=== PATIENT | female | born 1990 | race Caucasian/White ===

== ENCOUNTER 2025-05-16 07:28 | Inpatient (IN) ==
[2025-05-16] MEDS ORDERED: LIDOCAINE 1% LOCAL 20 ML VIAL INFIL PRN (12:42)
[2025-05-16] MEDS ORDERED: OXYTOCIN 30 UNITS/NSS 30 UNITS/500 ML BAG IV PRN (12:42)
[2025-05-16] MEDS ORDERED: CALCIUM CARBONATE 500 MG CHEWABLE TAB PO PRN (12:42)
--- NOTE | 2025-05-16 13:22 | History & Physical Report ---
Date of Service May 16, 2025 Assessment & Plan (1) Encounter for induction of labor: (2) Diabetes mellitus during , antepartum: (3) Two vessel umbilical cord: (4) Hypothyroid in , antepartum: Plan Rochelle Bassett is a 35 y/o at 39w 1d presenting for induction of labor. is complicated by history of T2DM managed with insulin and subclinical hypothyroidism. Pitocin started Encinas bulb placed Epidural if requested q2h BG checks (POC glucose 104 on admission) Continue monitoring Vitals and I&O monitoring Anticipate Admission and Anticipated Discharge Date Admission Date: May 16, 2025 History of Present Illness Chief Complaint: induction of labor Primary Care Provider: LAURA Parker Rochelle Bassett is a 35 y/o 39w 1d presenting today for induction of labor. is complicated by history of T2DM and subclinical hypothyroidism. EMILY 05/21/25 confirmed by ultrasound. External FHT and external uterine monitors used; Category I tracing; moderate FHT variability. Had regular appointments with OB. Rh(+), Rubella immune, GBS (-) (04/27/25) POC glucose on admission - 104 OB Labs: Blood Type O Positive 11/17/24 Antibody Screen NEGATIVE 11/17/24 Hgb 13.7 g/dl (12.0-16.0) 03/06/25 Hct 40.9 % (37.0-47.0) 03/06/25 MCV 88.6 fL (80.0-100.0) 11/17/24 Plt Count 237 K/uL (130-400) 11/17/24 Rubella IgG Antibody Immune (Immune) 11/17/24 Treponema pallidum Ab Negative (Negative) 03/06/25 Hep Bs Antigen Negative (Negative) 11/17/24 Hepatitis C Antibody Negative (Negative) 11/17/24 HIV 1&2 Ab/P24 Ag 4thGn Negative (Negative) 11/17/24 OB Optional Labs: Chlamydia trachomatis RNA Not Detected (NotDetected) 11/17/24 Neisseria gonorrhoeae RNA Not Detected (NotDetected) 11/17/24 Thyroid Stimulating Hormone (TSH) 2.739 uIu/ml (0.300-4.500) 03/24/25 cff-DNA: low-risk (see scanned documents) Review of Systems Denies fever, chills, sweats Denies shortness of breath, difficulty breathing, chest pain, palpitations, chest pressure. Denies breast pain. Denies dysuria. Denies headache or changes in vision. Allergies Allergy/AdvReac Type Severity Reaction Status Date / Time Sulfa (Sulfonamide Allergy Severe Anaphylaxis Verified 05/15/25 13:54 Antibiotics) Home Medications Medication Instructions Recorded Confirmed Type blood-glucose meter (OneTouch #1 ea 04/21/24 05/15/25 Rx Verio Flex Meter) lancets 30 gauge (OneTouch Delica #200 ea 04/21/24 05/15/25 Rx Plus Lancet) blood sugar diagnostic (OneTouch #360 ea 06/02/24 05/15/25 Rx Verio test strips) comp.stocking,knee,long,medium #12 ea 10/12/24 05/15/25 Rx blood-glucose,ground layer,cont #1 ea 10/13/24 05/15/25 Rx (Dexcom G7 Radioactivity Technician) vitamin #56-iron 35 mg 1 cap PO DAILY 11/08/24 05/16/25 History and 5 mg-folic acid 1 mg-dha capsule pen needle, diabetic 32 gauge x #100 ea 11/14/24 05/15/25 Rx 5/32" (BD Emy 2nd Gen Pen Needle) aspirin 81 mg capsule 81 mg PO DAILY 02/07/25 05/16/25 History blood-glucose sensor (Dexcom G7 #3 ea 03/21/25 05/15/25 Rx Sensor device) insulin lispro 100 unit/mL See Rx Instructions subcut TID #15 03/23/25 05/16/25 Rx subcutaneous pen (Humalog KwikPen mL (U-100) Insulin) levothyroxine 100 mcg tablet 100 mcg PO .COMPLEX #38 tabs 03/28/25 05/16/25 Rx breast pump #1 ea 05/04/25 05/15/25 Rx insulin glargine 100 unit/mL (3 34 unit subcut DAILY 05/16/25 05/16/25 History mL) subcutaneous pen (Basaglar KwikPen U-100 Insulin) Patient History Medical History (Updated 05/16/25 @ 13:27 by Cynthia Olguin DO) Full dentures History of chicken pox Pain due to varicose veins of lower extremity Varicosities of leg Hemoglobin A1c 8.0 percent or greater Hemoglobin A1c above reference range Gestational diabetes Surgical History S/P tooth extraction S/P wisdom tooth extraction Family History Grandmother (Maternal) Diabetes Mother Hypertension Other Colorectal cancer Denies family history of Ovarian cancer Prostate cancer Breast cancer Lung cancer Social History (Updated 03/27/25 @ 11:41 by Melanie Hutton RN) Smoking Status: Never smoker Tobacco Type: Cigarettes Age Started Using Tobacco: 0; packs per day: 0; Cigarettes Per Day: 3; Second Hand Exposure: No; Do You Dip or Chew Tobacco: No; Hx Alcohol Use: No Hx Substance Use: No Preferred Language: Estonian Communication Ability: Effective Visual Impairment: No Limitations Traffic Control Officer Required: No Beliefs That Will Affect Care: None marital status: marital status details: Paul Bassett ([phone] Current Living Situation: Spouse and Family Current Living Situation Comment: lives with spouse, daughter, dogs current occupational status: unemployed How many Children do You have: 1 Other Information That Helps Us Care for You: No Feels Safe at Home: Yes Safety Concerns: Feels Safe At This Time Childhood Exposure to Second-Hand Smoke: Yes caffeine: Yes Dental Care, Regularly: Yes Physical Activity Frequency: 1-2 Times per Week Seatbelt Use: always Sunscreen Use: Yes Review of Systems All systems reviewed & are unremarkable except as noted in HPI & below Physical Exam Physical Exam: General: Alert, oriented. No acute distress. Cardiac: Regular rate and rhythm, no murmurs/rubs/gallops. Respiratory: Clear to auscultation bilaterally a/p, no wheezes/rales/rhonchi. No increased work of breathing. Symmetrical chest rise. No respiratory distress. Abdomen: Gravid, soft, nontender. normal to inspection. Pelvic: Dilation 1 cm; Effacement 50 ; Station -[address] Laurent Lower Extremities: No lower extremity edema or swelling. No deep calf pain. H adriano's negative bilaterally Constitutional: WD/WN, vitals as above Results & Data Vital Signs (Past 12 Hours) Vital Signs Temp Pulse Resp BP 05/16/25 12:23 74 135/87 05/16/25 12:13 36.9 C 20 Supervising Physician Co-Signing Physician Notes Resident Physician Supervision Note: I was present with Dr. Olguin during the history and exam. I discussed the case with the resident and agree with the findings and plan as documented in the note. Any exceptions or clarifications are listed here: 35yo at 39+wks for planned induction with pregest dm, 2vc and hypothyroidism. cx unfavorable and planned encinas and pitocin induction. was unable to come in for encinas overnight and induction this am, delayed until now due to bed availability. pt did therefore have breakfast and lunch and gave herself partial doses of her meal time insulin. denies rom, vb. +Fm. Rh pos, ri, gbs neg, prior x 1 10 yrs ago, same fob. PE. abd soft gravid nt, efw 8-9#. ext nt calves. fhts categ 1. toco no regular ctx. sve visually 1cm, long, -2, mid med. PROCEDURE: sse cx visualized, grasped on ant lip with ring forcep, encinas through os and balloon inflated with 40cc sterile water. Spec removed, encinas taped to leg. pt anamaria well. Will proceed with starting pitocin as well. Epidural when pt desires, arom when able. Will check bgs q2hr for now and q1hr in active labor. May require insulin drip if bsgs out of range, try to keep bsg 80-120. Pt has cgm as well. Couple verbalized understanding and agree. Documented By: Nia Laurent MD, FACOG
[2025-05-16] MEDS: LACTATED RINGER'S 1,000 ML IV PRN (13:33)
[2025-05-16] MEDS: OXYTOCIN 30 UNITS/NSS 30 UNITS/500 ML BAG IV PRN (13:33)
[2025-05-16 13:53] LABS: Hematocrit (blood only) 37.1 % (37.0-47.0); Hemoglobin 13.1 g/dl (12.0-16.0); Mean Corpuscular Hemoglobin 31.0 pg (25.0-34.0); Mean Corpuscular Volume 87.7 fL (80.0-100.0); Platelet Count 192 K/uL (130-400); RDW Standard Deviation 43.8 fL (36.4-46.3); Red Blood Count 4.23 M/uL (4.20-5.40); White Blood Count 7.31 K/ul (4.8-10.8)
--- NOTE | 2025-05-16 15:15 | Labor Progress Brief Note ---
Date of Service May 16, 2025 Subjective pt came for induction and this note bills for cervical dilator. prior note documents procedure. Assessment & Plan (1) Encounter for induction of labor: (2) Two vessel umbilical cord: (3) Hypothyroid in , antepartum: (4) Diabetes mellitus during , antepartum: (5) Non-dilated cervix in term : Plan encinas ripening balloon placed. see prior note for procedure. Admission and Anticipated Discharge Date Admission Date: May 16, 2025 Results & Data Vital Signs (Past 12 Hours) Vital Signs Temp Pulse Resp BP 05/16/25 14:22 69 122/72 05/16/25 13:37 71 122/77 05/16/25 12:23 74 135/87 05/16/25 12:13 98.4 F 20 Coding Level of Care Code None Diagnoses Encounter for induction of labor Z34.90 Two vessel umbilical cord Q27.0 Hypothyroid in , antepartum O99.280; E03.9 Diabetes mellitus during , antepartum O24.919 Non-dilated cervix in term O34.40 CPT Codes Misx Procedure Codes - 49806 Placement of cervical dilator: 79363 Placement of cervical dilator ([id number]) SCALLOP SHUCKER Miscellaneous Codes Misx Procedure Codes 87510 Placement of cervical dilator
--- NOTE | 2025-05-16 15:18 | Anesthesiology Consultation ---
Date of Service May 16, 2025 Assessment & Plan (1) Encounter for pre-operative examination: Chart Review Chart Review: Acceptable Risk for Labor Epidural History Height/Weight Height: 5 ft 5 in Weight: 96.615 kg Allergies Allergy/AdvReac Type Severity Reaction Status Date / Time Sulfa (Sulfonamide Allergy Severe Anaphylaxis Verified 05/15/25 13:54 Antibiotics) Medications Home Medications Medication Instructions Recorded Confirmed Last Taken blood-glucose meter (OneTouch #1 ea 04/21/24 05/15/25 Unknown Verio Flex Meter) lancets 30 gauge (OneTouch Delica #200 ea 04/21/24 05/15/25 Unknown Plus Lancet) blood sugar diagnostic (OneTouch #360 ea 06/02/24 05/15/25 Unknown Verio test strips) comp.stocking,knee,long,medium #12 ea 10/12/24 05/15/25 Unknown blood-glucose,field sales specialist,cont #1 ea 10/13/24 05/15/25 Unknown (Dexcom G7 Upholsterer Assembly Line) vitamin #56-iron 35 mg 1 cap PO DAILY 11/08/24 05/16/25 05/16/25 06:00 and 5 mg-folic acid 1 mg-dha capsule pen needle, diabetic 32 gauge x #100 ea 11/14/24 05/15/25 Unknown 5/32" (BD Emy 2nd Gen Pen Needle) aspirin 81 mg capsule 81 mg PO DAILY 02/07/25 05/16/25 05/16/25 06:00 blood-glucose sensor (Dexcom G7 #3 ea 03/21/25 05/15/25 Unknown Sensor device) insulin lispro 100 unit/mL See Rx Instructions subcut TID #15 03/23/25 05/16/25 05/16/25 11:00 subcutaneous pen (Humalog KwikPen mL (U-100) Insulin) levothyroxine 100 mcg tablet 100 mcg PO .COMPLEX #38 tabs 03/28/25 05/16/25 05/16/25 06:00 breast pump #1 ea 05/04/25 05/15/25 Unknown insulin glargine 100 unit/mL (3 34 unit subcut DAILY 05/16/25 05/16/25 05/15/25 22:00 mL) subcutaneous pen (Basaglar KwikPen U-100 Insulin) Active Medications Generic Name Dose Route Start Last Admin Trade Name Freq PRN Reason Stop Dose Admin Oxytocin 30 units in 500 mls @ 5 mls/hr 05/16/25 12:42 05/16/25 15:00 Pitocin 30 Units/Nss IV 05/18/25 12:41 0.3 units/hr .Q24H PRN 5 mls/hr Labor Induction/Augmentation Titration Protocol 0.3 UNITS/HR Lactated Ringer's 1,000 mls @ 125 mls/hr 05/16/25 12:42 05/16/25 14:55 Lr IV 05/18/25 12:41 999 mls/hr .Q8H PRN Infusion L&D Protocol Protocol Past Medical History Medical History Full dentures History of chicken pox Pain due to varicose veins of lower extremity Varicosities of leg Hemoglobin A1c 8.0 percent or greater Hemoglobin A1c above reference range Gestational diabetes Past Family History Family History Grandmother (Maternal) Diabetes Mother Hypertension Other Colorectal cancer Denies family history of Ovarian cancer Prostate cancer Breast cancer Lung cancer Past Surgical History Surgical History S/P tooth extraction S/P wisdom tooth extraction Social History Smoking Status: Never smoker Smoking cigarettes per day: 3 Do You Dip or Chew Tobacco: No Hx Alcohol Use: No Hx Substance Use: No Physical Exam Vital Signs Last Vital Signs Temp 36.9 C 05/16/25 12:13 Pulse 69 05/16/25 14:22 Resp 20 05/16/25 12:13 BP 122/72 05/16/25 14:22 Testing Laboratory Results 05/16/25 13:10 05/16/25 13:15 POC Glucose 104 H
[2025-05-16] MEDS: fentANYL 2 MCG/ML BUPIVacaine 0.125%-NSS 100ML BAG ONE (15:47)
[2025-05-16] MEDS: LIDOCAINE 2%/EPINEPHRINE 1:200,000 20 ML PF ONE (15:48)
[2025-05-16] MEDS: BUPIVACAINE 0.25% PF 30 ML VIAL ONE (15:48)
[2025-05-16] MEDS ORDERED: ONDANSETRON INJ 2 MG/ML 2 ML VIAL IV PRN (15:52)
[2025-05-16] MEDS ORDERED: ROPIVACAINE 0.5% PF 5 MG/ML 20 ML VIAL EPI PRN (15:52)
[2025-05-16] MEDS ORDERED: LIDOCAINE 2% MPF LOCAL 5 ML VIAL EPI PRN (15:52)
[2025-05-16] MEDS ORDERED: SODIUM CHLORIDE 0.9% PF INJ 10 ML VIAL EPI PRN (15:52)
[2025-05-16] MEDS ORDERED: NALOXONE HCL 0.4 MG/1 ML VIAL/CARP IV PRN (15:52)
[2025-05-16] MEDS ORDERED: NALOXONE HCL 1 MG in SODIUM CHLORIDE 0.9% 1,000 ML IV PRN (15:52)
[2025-05-16] MEDS ORDERED: BUPIVACAINE 0.25% PF 30 ML VIAL EPI PRN (15:52)
--- NOTE | 2025-05-16 16:34 | Labor Progress Brief Note ---
Date of Service May 16, 2025 Subjective pt comfortable. Assessment & Plan (1) Encounter for induction of labor: (2) Two vessel umbilical cord: (3) Hypothyroid in , antepartum: (4) Diabetes mellitus during , antepartum: Plan will see how arom helps labor and c/w pit. fhts categ 1. Admission and Anticipated Discharge Date Admission Date: May 16, 2025 Physical Exam Constitutional: WD/WN, vitals as above Genitourinary: Manual OB Exam: + cervical dilation 5 cm, + cervical effacement (long), + station high and + amniotic fluid (clear fluid, seems to be srom.) OB Exam Monitor Tracing: + external FHT monitor used, + external uterine monitor used (not well traced ), + category I and + normal FHT variability Results & Data Vital Signs (Past 12 Hours) Vital Signs Temp Pulse Resp BP Pulse Ox 05/16/25 16:30 87 89 L 05/16/25 16:26 97 05/16/25 16:26 88 05/16/25 16:26 86 127/69 05/16/25 16:21 95 H 96 05/16/25 16:20 71 142/71 H 05/16/25 16:16 81 130/78 94 05/16/25 16:15 86 127/78 05/16/25 16:11 70 96 05/16/25 16:10 84 133/80 05/16/25 16:06 80 95 05/16/25 16:05 79 139/80 05/16/25 16:01 95 05/16/25 16:01 86 05/16/25 16:01 89 94 05/16/25 16:00 70 18 157/79 H 05/16/25 15:56 96 05/16/25 15:56 85 05/16/25 15:56 94 H 94 05/16/25 15:55 95 H 20 142/83 H 05/16/25 15:53 71 152/79 H 05/16/25 15:51 81 146/84 H 97 05/16/25 15:50 20 05/16/25 15:50 20 05/16/25 15:50 90 05/16/25 15:50 78 05/16/25 15:50 81 152/87 H 05/16/25 15:48 76 149/85 H 05/16/25 15:46 70 159/93 H 97 05/16/25 15:45 20 05/16/25 15:45 20 05/16/25 15:44 82 155/91 H 05/16/25 15:43 83 90 05/16/25 15:41 95 H 98 05/16/25 15:36 88 97 05/16/25 15:31 85 100 05/16/25 15:30 73 150/76 H 05/16/25 15:28 70 93 05/16/25 15:26 72 96 05/16/25 14:22 69 122/72 05/16/25 13:37 71 122/77 05/16/25 12:23 74 135/87 05/16/25 12:13 98.4 F 20 Coding Level of Care Code None Diagnoses Encounter for induction of labor Z34.90 Two vessel umbilical cord Q27.0 Hypothyroid in , antepartum O99.280; E03.9 Diabetes mellitus during , antepartum O24.919
[2025-05-16] MEDS: SODIUM CHLORIDE 0.9% PF INJ 10 ML VIAL ONE (17:48)
[2025-05-16] MEDS: BUPIVACAINE 0.25% PF 30 ML VIAL EPI STA (17:57)
[2025-05-16] MEDS: SODIUM CHLORIDE 0.9% PF INJ 10 ML VIAL EPI STA (17:57)
[2025-05-16] MEDS: LIDOCAINE 2%/EPINEPHRINE 1:200,000 20 ML PF EPI STA (17:57)
--- NOTE | 2025-05-16 18:56 | Labor Progress Brief Note ---
Date of Service May 16, 2025 Subjective pt comfortable, bladder just drained for 300cc. Assessment & Plan (1) Encounter for induction of labor: (2) Two vessel umbilical cord: (3) Hypothyroid in , antepartum: (4) Diabetes mellitus during , antepartum: Plan small cx change. c/w pit. fhts categ 1. Admission and Anticipated Discharge Date Admission Date: May 16, 2025 Physical Exam Constitutional: WD/WN, vitals as above Genitourinary: Manual OB Exam: + cervical dilation 6 cm, + cervical effacement 50% and + station (mid position now, was posterior ) -2 OB Exam Monitor Tracing: + external FHT monitor used, + external uterine monitor used (q2-4), + category I and + normal FHT variability Results & Data Vital Signs (Past 12 Hours) Vital Signs Temp Pulse Resp BP Pulse Ox 05/16/25 18:51 71 95 05/16/25 18:50 75 94 05/16/25 18:48 81 116/72 05/16/25 18:46 70 95 05/16/25 18:44 72 94 05/16/25 18:41 74 96 05/16/25 18:38 82 94 05/16/25 18:36 84 95 05/16/25 18:32 68 05/16/25 18:32 70 116/62 94 05/16/25 18:31 78 95 05/16/25 18:30 18 05/16/25 18:30 18 05/16/25 18:27 72 94 05/16/25 18:26 77 95 05/16/25 18:22 88 93 05/16/25 18:21 87 93 05/16/25 18:18 81 120/68 05/16/25 18:16 86 95 05/16/25 18:11 73 96 05/16/25 18:08 71 93 05/16/25 18:06 81 96 05/16/25 18:02 81 110/61 05/16/25 18:01 74 95 05/16/25 18:00 18 05/16/25 18:00 73 18 94 05/16/25 17:56 83 95 05/16/25 17:55 82 93 05/16/25 17:51 81 96 05/16/25 17:49 83 113/61 93 05/16/25 17:46 86 95 05/16/25 17:44 72 94 05/16/25 17:41 73 96 05/16/25 17:38 78 93 05/16/25 17:36 83 96 05/16/25 17:34 80 121/68 05/16/25 17:32 74 93 05/16/25 17:31 74 96 05/16/25 17:26 72 97 05/16/25 17:21 70 97 05/16/25 17:16 82 96 05/16/25 17:15 74 94 05/16/25 17:11 81 98 05/16/25 17:06 67 96 05/16/25 17:03 70 129/77 05/16/25 17:01 77 98 05/16/25 17:00 18 05/16/25 17:00 18 05/16/25 16:56 86 97 05/16/25 16:51 89 97 05/16/25 16:46 84 96 05/16/25 16:45 73 135/71 05/16/25 16:43 81 94 05/16/25 16:41 81 96 05/16/25 16:40 75 132/58 L 05/16/25 16:36 80 97 05/16/25 16:35 98.1 F 73 145/68 H 05/16/25 16:31 73 99 05/16/25 16:30 87 18 89 L 05/16/25 16:26 97 05/16/25 16:26 88 05/16/25 16:26 86 127/69 05/16/25 16:21 95 H 96 05/16/25 16:20 71 142/71 H 05/16/25 16:16 81 130/78 94 05/16/25 16:15 86 127/78 05/16/25 16:11 70 96 05/16/25 16:10 84 133/80 05/16/25 16:06 80 95 05/16/25 16:05 79 139/80 05/16/25 16:01 95 05/16/25 16:01 86 05/16/25 16:01 89 94 05/16/25 16:00 70 18 157/79 H 05/16/25 15:56 96 05/16/25 15:56 85 05/16/25 15:56 94 H 94 05/16/25 15:55 95 H 20 142/83 H 05/16/25 15:53 71 152/79 H 05/16/25 15:51 81 146/84 H 97 05/16/25 15:50 20 05/16/25 15:50 20 05/16/25 15:50 90 05/16/25 15:50 78 05/16/25 15:50 81 152/87 H 05/16/25 15:48 76 149/85 H 05/16/25 15:46 70 159/93 H 97 05/16/25 15:45 20 05/16/25 15:45 20 05/16/25 15:44 82 155/91 H 05/16/25 15:43 83 90 05/16/25 15:41 95 H 98 05/16/25 15:36 88 97 05/16/25 15:31 85 100 05/16/25 15:30 73 150/76 H 05/16/25 15:28 70 93 05/16/25 15:26 72 96 05/16/25 14:22 69 122/72 05/16/25 13:37 71 122/77 05/16/25 12:23 74 135/87 05/16/25 12:13 98.4 F 20 Coding Level of Care Code None Diagnoses Encounter for induction of labor Z34.90 Two vessel umbilical cord Q27.0 Hypothyroid in , antepartum O99.280; E03.9 Diabetes mellitus during , antepartum O24.919
[2025-05-16] MEDS: ACETAMINOPHEN 325 MG TAB PO STA (19:28)
--- NOTE | 2025-05-16 20:33 | Labor Progress Brief Note ---
Date of Service May 16, 2025 Subjective comfortable. Assessment & Plan (1) Encounter for induction of labor: (2) Two vessel umbilical cord: (3) Hypothyroid in , antepartum: (4) Diabetes mellitus during , antepartum: Plan iupc placed and mvu's inadeq, cont to inc pit to achieve adeq mvu's. fhts categ 1. bsgs noted. Admission and Anticipated Discharge Date Admission Date: May 16, 2025 Physical Exam Constitutional: WD/WN, vitals as above Genitourinary: Manual OB Exam: + cervical dilation 6 cm, + cervical effacement (75% with ctx) and + station -2 OB Exam Monitor Tracing: + external FHT monitor used, + external uterine monitor used (q3 pit at 13), + intra-uterine pressure catheter used (placed, mvu inadeq), + category I and + normal FHT variability Results & Data Vital Signs (Past 12 Hours) Vital Signs Temp Pulse Resp BP Pulse Ox 05/16/25 20:26 70 97 05/16/25 20:21 74 95 05/16/25 20:18 75 126/69 05/16/25 20:16 74 96 05/16/25 20:11 81 95 05/16/25 20:06 74 95 05/16/25 20:04 75 127/76 05/16/25 20:01 82 96 05/16/25 19:56 84 96 05/16/25 19:51 86 95 05/16/25 19:48 81 115/69 05/16/25 19:46 76 95 05/16/25 19:41 85 95 05/16/25 19:36 79 96 05/16/25 19:34 75 122/72 05/16/25 19:31 75 94 05/16/25 19:26 92 H 95 05/16/25 19:21 72 95 05/16/25 19:18 78 121/72 05/16/25 19:16 77 96 05/16/25 19:13 75 93 05/16/25 19:11 76 94 05/16/25 19:07 71 93 05/16/25 19:06 71 96 05/16/25 19:03 70 110/68 05/16/25 19:02 71 94 05/16/25 19:01 72 94 05/16/25 18:56 83 94 05/16/25 18:51 71 95 05/16/25 18:50 75 94 05/16/25 18:48 81 116/72 05/16/25 18:46 70 95 05/16/25 18:44 72 94 05/16/25 18:41 74 96 05/16/25 18:38 82 94 05/16/25 18:36 84 95 05/16/25 18:32 68 05/16/25 18:32 70 116/62 94 05/16/25 18:31 78 95 05/16/25 18:30 18 05/16/25 18:30 18 05/16/25 18:27 72 94 05/16/25 18:26 77 95 05/16/25 18:22 88 93 05/16/25 18:21 87 93 05/16/25 18:18 81 120/68 05/16/25 18:16 86 95 05/16/25 18:11 73 96 05/16/25 18:08 71 93 05/16/25 18:06 81 96 05/16/25 18:02 81 110/61 05/16/25 18:01 74 95 05/16/25 18:00 18 05/16/25 18:00 73 18 94 05/16/25 17:58 98.4 F 05/16/25 17:56 83 95 05/16/25 17:55 82 93 05/16/25 17:51 81 96 05/16/25 17:49 83 113/61 93 05/16/25 17:46 86 95 05/16/25 17:44 72 94 05/16/25 17:41 73 96 05/16/25 17:38 78 93 05/16/25 17:36 83 96 05/16/25 17:34 80 121/68 05/16/25 17:32 74 93 05/16/25 17:31 74 96 05/16/25 17:26 72 97 05/16/25 17:21 70 97 05/16/25 17:16 82 96 05/16/25 17:15 74 94 05/16/25 17:11 81 98 05/16/25 17:06 67 96 05/16/25 17:03 70 129/77 05/16/25 17:01 77 98 05/16/25 17:00 18 05/16/25 17:00 18 05/16/25 16:56 86 97 05/16/25 16:51 89 97 05/16/25 16:46 84 96 05/16/25 16:45 73 135/71 05/16/25 16:43 81 94 05/16/25 16:41 81 96 05/16/25 16:40 75 132/58 L 05/16/25 16:36 80 97 05/16/25 16:35 98.1 F 73 145/68 H 05/16/25 16:31 73 99 05/16/25 16:30 87 18 89 L 05/16/25 16:26 97 05/16/25 16:26 88 05/16/25 16:26 86 127/69 05/16/25 16:21 95 H 96 05/16/25 16:20 71 142/71 H 05/16/25 16:16 81 130/78 94 05/16/25 16:15 86 127/78 05/16/25 16:11 70 96 05/16/25 16:10 84 133/80 05/16/25 16:06 80 95 05/16/25 16:05 79 139/80 05/16/25 16:01 95 05/16/25 16:01 86 05/16/25 16:01 89 94 05/16/25 16:00 70 18 157/79 H 05/16/25 15:56 96 05/16/25 15:56 85 05/16/25 15:56 94 H 94 05/16/25 15:55 95 H 20 142/83 H 05/16/25 15:53 71 152/79 H 05/16/25 15:51 81 146/84 H 97 05/16/25 15:50 20 05/16/25 15:50 20 05/16/25 15:50 90 05/16/25 15:50 78 05/16/25 15:50 81 152/87 H 05/16/25 15:48 76 149/85 H 05/16/25 15:46 70 159/93 H 97 05/16/25 15:45 20 05/16/25 15:45 20 05/16/25 15:44 82 155/91 H 05/16/25 15:43 83 90 05/16/25 15:41 95 H 98 05/16/25 15:36 88 97 05/16/25 15:31 85 100 05/16/25 15:30 73 150/76 H 05/16/25 15:28 70 93 05/16/25 15:26 72 96 05/16/25 14:22 69 122/72 05/16/25 13:37 71 122/77 05/16/25 12:23 74 135/87 05/16/25 12:13 98.4 F 20 Coding Level of Care Code None Diagnoses Encounter for induction of labor Z34.90 Two vessel umbilical cord Q27.0 Hypothyroid in , antepartum O99.280; E03.9 Diabetes mellitus during , antepartum O24.919
[2025-05-16] MEDS: fentANYL 2 MCG/ML BUPIVacaine 0.125%-NSS 100ML BAG EPI PRN (22:51)
[2025-05-17] MEDS: METHYLERGONOVINE MALEATE 0.2 MG/ML AMP IM ONE (01:12)
--- NOTE | 2025-05-17 01:37 | Delivery Summary ---
Vaginal Delivery Summary Date of Service May 17, 2025 Vaginal Delivery Summary and 2nd Degree LAC The patient dilated to complete and pushed to deliver a viable female infant Apgars 9 and 9 via over 2nd degree perineal laceration. Mouth and nose bulb suctioned at perineum. Shoulders and body delivered with ease. Infant was vigorous and crying at . Cord clamped at 60 seconds of life and infant to maternal abdomen where the cord was then doubly clamped and cut. Laceration repaired in usual fashion with 3-0 vicryl. Placenta delivered spontaneously and cotyledons intact. Hemostasis not achieved with dilute pitocin and uterine massage/bimanual massage and drainage of the bladder for approximately 200 cc under sterile conditions. Rectal cytotec 1000mcg placed but rapidly expelled from rectum and after bp checked IM methergine given. Uterus swept x multiple and membranes removed multiple times, some larger pieces but then some smaller pieces with ? tissue. Area palpated with this was anterior and LEONELA. After recheck of uterus again with times of good uterine tone and then poor uterine tone, with no further evidence of retained products, GUI placed and attached to wall suction. Laceration had to be reapproximated with interrupted suture of 3-0 vicyrl. Cervix and sulci intact. QBL 1110 cc. Mother and baby stable in recovery. All circumstances of pph reviewed with patient and family. Will reeval wall suction amount in about 1hr and then pause suction and see what happens from there. Given multiple sweeps of uterus, rec ancef x 3 doses. MNPG Vaginal Delivery Charge Delivery Type Details: and 2nd Degree LAC
[2025-05-17] MEDS ORDERED: BENZOCAINE 20% SPRY 85 APPLN/85 GM CAN EXT PRN (01:56)
[2025-05-17] MEDS ORDERED: HYDROCORTISONE ACETATE 25 MG SUPP PR PRN (01:56)
[2025-05-17] MEDS ORDERED: OXYTOCIN 30 UNITS/NSS 30 UNITS/500 ML BAG IV PRN (01:56)
[2025-05-17] MEDS ORDERED: DIPHTHER/TETAN/PERTUS Vaccine (Tdap, Adol/Adult) 0.5mL IM ONE (01:56)
[2025-05-17] MEDS: OXYTOCIN 20 UNITS in LACTATED RINGER'S 1,000 ML IV SCH (02:44)
[2025-05-17] MEDS: ONDANSETRON INJ 2 MG/ML 2 ML VIAL IV ONE (03:14)
[2025-05-17] MEDS: ACETAMINOPHEN 325 MG TAB PO PRN (04:13)
[2025-05-17] MEDS: IBUPROFEN 600 MG TAB PO PRN (04:15)
[2025-05-17 06:10] LABS: Hematocrit (blood only) 35.1 % (37.0-47.0); Hemoglobin 12.3 g/dl (12.0-16.0)
[2025-05-17] MEDS: LEVOTHYROXINE SODIUM 200 MCG TABLET PO SCH (07:26)
[2025-05-17] MEDS: LEVOTHYROXINE SODIUM 100 MCG TABLET PO SCH (08:01)
--- NOTE | 2025-05-17 08:15 | Anesthesia Procedure Note ---
Date of Service May 17, 2025 Anesthesia Post Epidural Note Vital Signs Vital Signs: Temp Pulse Resp BP Pulse Ox O2 Del Method 36.4 C L 92 H 18 126/70 96 Room Air 05/17/25 07:15 05/17/25 08:11 05/17/25 04:45 05/17/25 07:31 05/17/25 08:11 05/17/25 07:15 Pain Intensity Bilateral Pelvic: Pain Intensity: 6 Notes Mental Status: alert / awake / arousable Nausea / Vomiting: adequately controlled Pain: adequately controlled Airway Patency, RR, SpO2: stable & adequate BP & HR: stable & adequate Hydration State: stable & adequate Neuraxial Anesthesia: was administered and sensory block is resolving Anesthetic Complications: no major complications apparent and Pt Satisfied with anesthetic care Epidural: Removed without complications and With tip intact
[2025-05-17] MEDS: DOCUSATE SODIUM 100 MG CAP PO SCH (08:56)
[2025-05-17] MEDS: PRENATAL VITAMIN 1 TAB PO SCH (08:56)
[2025-05-17] MEDS: OXYTOCIN 20 UNITS/1002ML LR IV ONE (09:19)
[2025-05-17 09:21] LABS: Hematocrit (blood only) 36.0 % (37.0-47.0); Hemoglobin 12.8 g/dl (12.0-16.0)
[2025-05-17] MEDS ORDERED: PHARMACY GLYCEMIC MGMT CONSULT PRN (15:34)
[2025-05-17] MEDS ORDERED: GLUCOSE 40% GEL 15 GM TUBE PO PRN (15:36)
[2025-05-17] MEDS ORDERED: GLUCOSE 10 TAB/TUBE PO PRN (15:36)
[2025-05-17] MEDS ORDERED: DEXTROSE 50% 50 ML SYRINGE IV PRN (15:36)
[2025-05-17] MEDS ORDERED: GLUCAGON FOR INJ 1 MG VIAL SQ PRN (15:36)
[2025-05-17] MEDS ORDERED: CARBOHYDRATES FOR HYPOGLYCEMIA PO PRN (15:36)
--- NOTE | 2025-05-17 15:38 | Hospitalist Consultation ---
Date of Consultation May 17, 2025 Assessment & Plan (1) Encounter for induction of labor: (2) Diabetes mellitus during , antepartum: (3) Gestational diabetes: (4) Hypothyroid in , antepartum: Plan 35yo female presented for induction of labor, vaginal delivery overnight 05/16- 05/17. Uncomplicated delivery, no issues during encounter and her in bed. Hospitalist consulted for diabetes management #DM II - A1c most recently 6.1 on basaglar 32u daily with humalog 9u TID. Hx GDM as well in the past, but much improved overall control given prior A1c 13.1 last year improved with Mounjaro/weight loss. Has GCM in place, last Glu 159 per phone reading Asked nursing to check POC to ensure congruent with GCM monitoring Pharmacy consulted for glycemic management however is after hours and will order coverage for time being If POC acceptable 150s given good PO intake will defer glargine at this exact moment but did have readings to upper 200s last evening and will place on low dose glargine BID for now given highs last evening w/ sliding scale to prevent lows but prior plan was to stop following delivery however will need to continue to monitor -> Further adjustment to glargine/sliding scale pending serial blood sugars. To notify provider if any issues for further instruction DM diet ordered #Hypothyroidism- followed by [facility] [place] as well for above. TSH 2.7 in February w/ normal T4 0.86 Prior reports taking 100mcg daily w/ extra 100mcg on / but Endocrinology instructed to just continue once daily post- and has been ordered Dispo: continued inpatient stay post-delivery Thank you for allowing hospitalist service to participate in the care of Mrs Bassett. Hospitalist service will follow up on blood sugars/insulin needs but suspect able to sign off in AM if pharmacy taking over glycemic management. Please call with any quesitons/concerns. Supervising Physician Co-Signing Physician Notes The patient was seen by me. The chart was reviewed. Case discussed with JERROD Farley. Agree with assessment and plan History of Present Illness Reason for Consultation: diabetes management Requesting Physician: Dr Laurent Attending Physician: Nia Laurent MD, FACOG History of Present Illness 35yo female presented for induction of labor, vaginal delivery overnight 05/16- 05/17. Currently resting in bed, feeding her baby girl, no acute distress. Patient with PMHx significant for DM II -initially diagnosed in March 2024 w/ A1c 13.1 at that time but improved following weight loss with Mounjaro and lost ~10kg in 3 months with A1c improvement to 6.4. In Sep 2024, became and has been following with Endocrinology for management. Hx GDM w/ prior but resolved w/ diet/exercise prior to last March. Current meds: Basaglar 32 units, Humalog 9 units TID Last POC in system was last evening however patient with GCM and has been monitoring - has had some upper 200s readings last evening but currently at 3:47 was 159. Asked nursing in room to check POC to ensure both matching but will plan for BID glargine for this evening with mealtime coverage with sliding scale. Also with hx hypothyroidism, to be taking 100mch Synthroid daily w/ extra tablet Thursday/ but she reports Lois from endocrine changed that post- operatively to just take one tablet daily and follow up outpatient. No fever/chills, chest pain, shortness of breath or other issues. Questions/concerns addressed at this time. Allergies Allergy/AdvReac Type Severity Reaction Status Date / Time Sulfa (Sulfonamide Allergy Severe Anaphylaxis Verified 05/15/25 13:54 Antibiotics) latex Allergy Rash Verified 05/16/25 18:56 Home Medications Medication Instructions Recorded Confirmed Type blood-glucose meter (OneTouch #1 ea 04/21/24 05/15/25 Rx Verio Flex Meter) lancets 30 gauge (OneTouch Delica #200 ea 04/21/24 05/15/25 Rx Plus Lancet) blood sugar diagnostic (OneTouch #360 ea 06/02/24 05/15/25 Rx Verio test strips) comp.stocking,knee,long,medium #12 ea 10/12/24 05/15/25 Rx blood-glucose,business integration analyst,cont #1 ea 10/13/24 05/15/25 Rx (Dexcom G7 Digital Ad Trafficker) vitamin #56-iron 35 mg 1 cap PO DAILY 11/08/24 05/16/25 History and 5 mg-folic acid 1 mg-dha capsule pen needle, diabetic 32 gauge x #100 ea 11/14/24 05/15/25 Rx 32" (BD Emy 2nd Gen Pen Needle) aspirin 81 mg capsule 81 mg PO DAILY 02/07/25 05/16/25 History blood-glucose sensor (Dexcom G7 #3 ea 03/21/25 05/15/25 Rx Sensor device) insulin lispro 100 unit/mL See Rx Instructions subcut TID #15 03/23/25 05/16/25 Rx subcutaneous pen (Humalog KwikPen mL (U-100) Insulin) levothyroxine 100 mcg tablet 100 mcg PO .COMPLEX #38 tabs 03/28/25 05/16/25 Rx breast pump #1 ea 05/04/25 05/15/25 Rx insulin glargine 100 unit/mL (3 34 unit subcut DAILY 05/16/25 05/16/25 History mL) subcutaneous pen (Basaglar KwikPen U-100 Insulin) Patient History Medical History Full dentures History of chicken pox Pain due to varicose veins of lower extremity Varicosities of leg Hemoglobin A1c 8.0 percent or greater Hemoglobin A1c above reference range Gestational diabetes Surgical History S/P tooth extraction S/P wisdom tooth extraction Family History Grandmother (Maternal) Diabetes Mother Hypertension Other Colorectal cancer Denies family history of Ovarian cancer Prostate cancer Breast cancer Lung cancer Social History (Updated 03/27/25 @ 11:41 by Melanie Hutton RN) Smoking Status: Never smoker Tobacco Type: Cigarettes Age Started Using Tobacco: 0; packs per day: 0; Cigarettes Per Day: 3; Second Hand Exposure: No; Do You Dip or Chew Tobacco: No; Hx Alcohol Use: No Hx Substance Use: No Preferred Language: Maltese Communication Ability: Effective Visual Impairment: No Limitations Computer System Specialist Required: No Beliefs That Will Affect Care: None marital status: marital status details: Paul Bassett [phone] Current Living Situation: Spouse and Family Current Living Situation Comment: lives with spouse, daughter, dogs current occupational status: unemployed How many Children do You have: 1 Other Information That Helps Us Care for You: No Feels Safe at Home: Yes Safety Concerns: Feels Safe At This Time Childhood Exposure to Second-Hand Smoke: Yes caffeine: Yes Dental Care, Regularly: Yes Physical Activity Frequency: 1-2 Times per Week Seatbelt Use: always Sunscreen Use: Yes Review of Systems Review of Systems: All systems reviewed & are unremarkable except as noted in HPI & below Physical Exam Physical Exam: General: WD/WN 35yo female post-, sitting up in bed feeding her baby, NAD, in room Head atraumatic, normocephalic, mmm, trachea midline Resp: even/unlabored, no distress, on room air CV: regular, no significant mrg Psych: AOx3, cooperative with exam Results & Data Results & Data Vital Signs (Past 12 Hours) Vital Signs Temp Pulse Resp BP BP Pulse Ox O2 Del Method 05/17/25 11:56 36.7 C 115/73 Room Air 05/17/25 08:31 96 05/17/25 08:31 84 05/17/25 08:26 96 05/17/25 08:26 86 05/17/25 08:21 96 05/17/25 08:21 86 05/17/25 08:16 95 05/17/25 08:16 87 05/17/25 08:11 96 05/17/25 08:11 92 H 05/17/25 08:06 95 05/17/25 08:06 92 H 05/17/25 08:01 95 05/17/25 08:01 90 05/17/25 07:56 95 05/17/25 07:56 94 H 05/17/25 07:51 87 95 05/17/25 07:46 85 96 05/17/25 07:41 86 96 05/17/25 07:36 88 93 05/17/25 07:31 85 126/70 94 05/17/25 07:26 90 94 05/17/25 07:21 86 95 05/17/25 07:16 89 96 05/17/25 07:15 36.4 C L 121/56 L Room Air 05/17/25 07:11 83 92 05/17/25 07:06 88 93 05/17/25 07:01 88 121/56 L 96 05/17/25 06:56 87 95 05/17/25 06:51 85 96 05/17/25 06:46 89 95 05/17/25 06:41 86 96 05/17/25 06:36 89 96 05/17/25 06:31 95 05/17/25 06:31 89 05/17/25 06:31 87 135/71 05/17/25 06:26 89 94 05/17/25 06:21 93 H 94 05/17/25 06:16 89 96 05/17/25 06:11 91 H 93 05/17/25 06:06 93 H 96 05/17/25 06:01 95 05/17/25 06:01 97 H 05/17/25 06:01 96 H 138/72 05/17/25 05:56 96 H 94 05/17/25 05:51 99 H 92 05/17/25 05:46 99 H 95 05/17/25 05:41 93 H 95 05/17/25 05:36 91 H 93 05/17/25 05:31 90 131/69 95 05/17/25 05:26 98 H 94 05/17/25 05:21 93 H 93 05/17/25 05:17 98 H 126/62 05/17/25 05:16 88 94 05/17/25 05:11 90 94 05/17/25 05:06 87 96 05/17/25 05:02 86 132/65 05/17/25 05:01 90 94 05/17/25 04:56 104 H 97 05/17/25 04:51 92 H 96 05/17/25 04:47 91 H 128/56 L 05/17/25 04:46 91 H 96 05/17/25 04:45 18 05/17/25 04:41 91 H 96 05/17/25 04:36 88 96 05/17/25 04:32 86 129/61 05/17/25 04:31 95 H 96 05/17/25 04:30 16 05/17/25 04:26 85 94 05/17/25 04:21 91 H 96 05/17/25 04:17 80 126/63 05/17/25 04:16 83 96 05/17/25 04:11 90 05/17/25 04:11 85 05/17/25 04:11 90 91 05/17/25 04:06 91 H 96 05/17/25 04:02 82 136/65 05/17/25 04:01 81 98 05/17/25 03:56 86 94 05/17/25 03:51 84 95 05/17/25 03:47 92 H 136/61 05/17/25 03:46 84 92 05/17/25 03:41 79 93 05/17/25 03:36 85 94 Laboratory Results 05/17/25 05/17/25 05/16/25 Range/Units 08:59 05:52 23:21 Hgb 12.8 12.3 (12.0-16.0) g/dl Hct 36.0 L 35.1 L (37.0-47.0) % POC Glucose 119 H (70-99) mg/dl 05/16/25 Range/Units 21:14 Hgb (12.0-16.0) g/dl Hct (37.0-47.0) % POC Glucose 118 H (70-99) mg/dl PG Care Time/CCT Total # of Minutes Spent Total Time Spent with Patient: Total time spent is greater than 50% in coordination of care (as documented) at patient's floor/unit and/or counseling patient: Coding Level of Care Code 53553 IN/OBS CONSULT LVL 2,35M Diagnoses Encounter for induction of labor Z34.90 Diabetes mellitus during , antepartum O24.919 Gestational diabetes O24.419 Hypothyroid in , antepartum O99.280; E03.9
--- NOTE | 2025-05-17 16:31 | Pharmacy Report ---
Pharmacy Glycemic Short Note 2 - Date of Service May 17, 2025 - Glycemic Short BSG Results (Last 24 hours): 05/16/25 05/16/25 05/17/25 21:14 23:21 16:00 POC Glucose 118 H 119 H 150 H OUTPATIENT ANTIDIABETIC REGIMEN: * Basaglar 34 units daily, humalog 8-9 units tidm ASSESSMENT: * 35 year old - Dx with T2DM 03/2024 and had been on Mounjaro, metformin previously but then switched to insulin during . Follows with [facility] for diabetes management. Most recent DM visit 03/2025 - per notes patient to monitor blood sugars upon delivery but plan was to stop insulin post delivery. Per notes, type of diabetes not fully understood * BSG 150 mg/dL - this evening, reasonable to continue with novolog scale for now. Will hold basal but consider adding if fasting BSG elevated tomorrow AM. PLAN FOR INPATIENT GLYCEMIC CONTROL: * Hold outpatient oral diabetes medications * Basal insulin * Lantus - hold * Bolus insulin * NovoLog per scale ACHS or Q6hrs while NPO * Goal Range: Low 120 mg/dL - High -180 mg/dL * Correction Factor: 35 mg/dL/unit * Nutritional / Prandial insulin per carb ratio of 1 unit per 15 grams CHO consumed
[2025-05-17] MEDS: INSULIN ASPART PER UNIT CHARGE SC SCH (21:00)
[2025-05-17] MEDS ORDERED: LANTUS PER UNIT CHARGE SQ SCH (21:00)
[2025-05-17 21:15] VITALS: RESP 16
[2025-05-18 04:16] VITALS: O2SAT 96
--- NOTE | 2025-05-18 06:42 | Obstetrical Progress Note ---
Date of Service May 18, 2025 Assessment & Plan (1) examination following vaginal delivery: (2) Subclinical hypothyroidism: (3) Diabetic peripheral neuropathy associated with type 2 diabetes mellitus: Plan Rochelle Bassett is a 35 y/o post- day 1 s/p complicated by post- hemorrhage. was complicated by T2DM, hypothyroidism, and 2 vessel cord Feels well today. Vital signs stable Continue post- care Encourage ambulation and Pain controlled with ibuprofen Hgb stable Discharge home tomorrow, follow up with Dr. Laurent in 6 weeks. Admission and Anticipated Discharge Date Admission Date: May 16, 2025 Anticipated date of discharge: 05/19/25 Supervising Physician Co-Signing Physician Notes Resident Physician Supervision Note: I was present with Dr. Olguin during the history and exam. I discussed the case with the resident and agree with the findings and plan as documented in the note. Any exceptions or clarifications are listed here: PPD#1 doing well, desires DC home. Insulin/diabetes discharge planning per medicine team, she has also reached out to endocrine for planning. Documented By: Lanie Desai, Subjective Rochelle Bassett is a 35 y/o post- day 1 s/p complicated by post- hemorrhage. was complicated by T2DM, hypothyroidism, and 2 vessel umbilical cord. Ambulation: ambulating normally Voiding: no voiding problems Passing Gas:: Yes Diet Tolerance:: regular diet Lochia:: Small Feeding Type:: breast feeding Current Pain Level: 4/10 Resting comfortably this AM in NAD. Denies STARR, CP, SOB, N/V/D, LE pain/swelling. Review of Systems Review of Systems: All systems reviewed & are unremarkable except as noted in HPI & below Physical Exam Physical Exam: General: patient resting comfortably, NAD, non-toxic in appearance, AA&O x 4, answers questions appropriately. Skin: warm, dry, intact HEENT: NC/AT, anicteric sclera, conjunctiva without injection, moist mucus membranes. Heart: +S1/S2, regular, no m/r/g Lungs: equal air entry bilaterally, no rales/rhonchi/wheezes Abd: +BS, soft, NT/ND, uterus firm, tender below the level of umbilicus Ext: warm, no clubbing/cyanosis or edema, Abelino's neg. Neuro: nonfocal, patient AA&O x 4, speech intact, no facial droop, moving all extremities on command. Constitutional: WD/WN, vitals as above Results & Data Vital Signs (Past 12 Hours) Vital Signs Temp Pulse Resp BP Pulse Ox O2 Del Method 05/18/25 04:00 36.4 C L 80 16 107/72 96 Room Air 05/17/25 20:45 36.7 C 85 16 118/73 97 Room Air
[2025-05-18 09:33] VITALS: BP 127/81; PULSE 84; TEMP 97.7
--- NOTE | 2025-05-18 09:38 | Hospitalist Progress Note ---
Date of Service May 18, 2025 Assessment & Plan (1) Encounter for induction of labor: (2) Diabetes mellitus during , antepartum: (3) Gestational diabetes: (4) Hypothyroid in , antepartum: Plan 35yo female Rochelle Bassett is a 35 y/o post- day 1 s/p complicated by post- hemorrhage. was complicated by T2DM, hypothyroidism, and 2 vessel umbilical cord. she presented for induction of labor, vaginal delivery overnight 05/16-05/17. Uncomplicated delivery, no issues during encounter and her in bed. Hospitalist consulted for diabetes management #DM II - A1c most recently 6.1 on basaglar 32u daily with humalog 9u TID. Hx GDM as well in the past, but much improved overall control given prior A1c 13.1 last year improved with Mounjaro/weight loss. Asked nursing to check POC to ensure congruent with GCM monitoring Diabetic diet Diabetes education and dietitian Pharmacy now managing insulin regimen. Currently on sliding scale. Long-acting insulin discontinued. Monitor blood sugars closely and reassess for further need for insulin during hospitalization. Plan for patient's oral hypoglycemics on discharge per pharmacy/patient's zinc miner Very close outpatient follow-up with PCP and zinc miner #Hypothyroidism- [place] [facility] for above. TSH 2.7 in February w/ normal T4 0.86 Prior reports taking 100mcg daily w/ extra 100mcg on / but Endocrinology instructed to just continue once daily post- and has been ordered Dispo: continued inpatient stay post-delivery Thank you for allowing hospitalist service to participate in the care of Mrs Bassett. Hospitalist service will follow up on blood sugars/insulin needs but suspect able to sign off in AM if pharmacy taking over glycemic management. Please call with any quesitons/concerns. Admission and Anticipated Discharge Date Admission Date: May 16, 2025 Subjective Doing well sitting up in bed with in lab. Family at bedside. RNs at bedside. We had an extensive very pleasant discussion regarding all aspects of patient's care including history of diabetes, hospital course and plan going forward. They were very appreciative. She is very proactive about her diabetes and is already arranging for close follow-up with her zinc miner postdischarge. I recommended following up in 2 to 3 days considering the sensitivity of her blood sugar management. She is not sure what type of diabetes tells me zinc miner is planning on working this up postdischarge suspected latent type I that is currently complicated with gestational DM? Pharmacy is currently managing her insulin regimen and has held off on long- acting as her fasting blood sugar this morning is fairly controlled per nursing staff bedside. She is in good spirits denies any notable symptoms or complaints at this time. Eating and ambulating. No nausea vomiting fevers chills abdominal pain lightheadedness chest pain shortness of breath or any other notable symptoms She has her continuous glucose monitor on and she and staff tell me that this was correlated with her fingersticks and this is what is being used now to monitor blood sugars Review of Systems Review of Systems: All systems reviewed & are unremarkable except as noted in HPI & below Physical Exam Physical Exam: General: WD/WN 35yo female post-, sitting up in bed feeding her baby, NAD, in room Head atraumatic, normocephalic, mmm, trachea midline Resp: even/unlabored, no distress, on room air CV: regular, no significant mrg Psych: AOx3, cooperative with exam Results & Data Results & Data Vital Signs (Past 12 Hours) Vital Signs Temp Pulse Resp BP Pulse Ox O2 Del Method 05/18/25 08:30 36.5 C 84 16 127/81 96 Room Air 05/18/25 04:00 36.4 C L 80 16 107/72 96 Room Air Laboratory Results Abnormal Labs 05/16/25 05/16/25 05/16/25 13:15 21:14 23:21 Hct POC Glucose 104 H 118 H 119 H 05/17/25 05/17/25 05/17/25 05:52 08:59 16:00 Hct 35.1 L 36.0 L POC Glucose 150 H 05/17/25 21:07 Hct POC Glucose 178 H PG Care Time/CCT Total # of Minutes Spent Total Time Spent with Patient: Total time spent is greater than 50% in coordination of care (as documented) at patient's floor/unit and/or counseling patient: Coding Level of Care Code 80827 SUB INP/OBS CARE 2/35MIN Diagnoses Encounter for induction of labor Z34.90 Diabetes mellitus during , antepartum O24.919 Gestational diabetes O24.419 Hypothyroid in , antepartum O99.280; E03.9
[2025-05-18 10:01] LABS: Hematocrit (blood only) 33.4 % (37.0-47.0); Hemoglobin 11.5 g/dl (12.0-16.0)
[2025-05-19] MEDS ORDERED: LEVOTHYROXINE SODIUM 100 MCG TABLET PO SCH (06:30)
== END 2025-05-18 12:00 | disposition home or self-care (01) | DRG 807 ==
LOC: 4S1 12:04 → 4E2 05-17 08:38